=== PATIENT | male | born 1960 | race Caucasian/White ===

== ENCOUNTER → 2018-01-01 | Outpatient (CLI) | payer OTHER ==
--- NOTE | 2018-01-01 09:17 | KCIC ---
MRI Lumbar Spine without contrast History: Acute right lumbar radiculopathy, acute low back pain, right leg pain for 6 weeks Technique: Multiplanar, multi sequential noncontrast MR imaging was performed of the lumbar spine. Contrast: None Comparison: None Findings: Lumbar vertebral body stature is overall maintained, small Schmorl's nodes. There is negligible grade 1 anterior spondylolisthesis L4-5 and L5-S1, negligible posterior subluxation L1 relative L2. There are hemangiomas of L1 and L3. Conus terminates at inferior aspect of L1. There is very mild variable endplate edema at L1-L2 through L4-5. There is moderate to severe degenerative disc disease L1-L2 and L3-4, to a somewhat lesser degree at L4-5, minimally L2-3 and L5-S1. There is 1.8 cm T2 hyperintense lesion of the left kidney, statistically likely a cyst. T12-L1: There is very minimal disc osteophyte complex. Spinal canal and neural foramina are adequate. There is mild facet degenerative change. L1-L2: There is minimal disc osteophyte complex and bulge. There is posterior annular tear. There is mild facet degenerative change. There is minimal narrowing of the far left lateral recess. There is mild narrowing of the left neural foramen primarily from posteriorly, right neural foramen adequate. L2-L3: There is negligible disc osteophyte complex. There is minimal facet degenerative change. There is minimal narrowing of the far lateral recess. There is mild narrowing of the left neural foramen, right neural foramen adequate. There is small posterior annular tear. L3-L4: There is minimal disc osteophyte complex and superimposed shallow bulge/protrusion. There is posterior annular tear. There is mild facet degenerative change and buckling of the ligamentum flavum. There is rsfp-tx-fnhznpqt narrowing of the far right lateral recess, contact descending right L4 nerve root. There is very mild narrowing of the far left lateral recess. There is mild narrowing of the left neural foramen. There is moderate to severe narrowing of the right neural foramen, effacement of perineural fat surrounding the exiting right L3 nerve root. There is small extrusion extending above the intervertebral disc space in the far right lateral recess and anterior right neural foramen estimated about 0.7 cm CC by about 1 cm transverse by 0.3 cm AP with contact of the ventral surface exiting right L3 nerve root. L4-L5: There is moderate buckling of the ligamentum flavum and iaae-ko-mimqnvel facet degenerative change. There is mild partial uncovering of the posterior aspect of the disc due to spondylolisthesis with minimal superimposed bulge. There is overall moderate spinal stenosis, lateral recess stenosis bilaterally. There is ywvg-bu-aoytduuw neural foramina compromise bilaterally, contact of the undersurfaces exiting L4 nerve roots greater on the left. There is left posterolateral annular tear. There is mild amorphous edema of the bilateral L5 pedicles likely reactive in etiology. L5-S1: Spinal canal and neural foramina are adequate. Impression: 1. There is moderate to severe narrowing of the right L3-4 neural foramen in part by shallow extrusion extending above the intervertebral disc space in the far right lateral recess and inferior right neural foramen with contact exiting right L3 nerve root. There is xwpk-kb-gratbtaf neural foramina compromise bilaterally at L4-5, other minimal narrowing as stated. 2. There is overall moderate spinal stenosis at L4-5 including lateral recess stenosis, also vwdf-ob-weshvvts narrowing of the far right lateral recess at L3-4. 3. There is multilevel lumbar degenerative disc disease greatest L1-L2 and L3-4, variable minimal endplate edema likely reactive/degenerative in etiology. 4. There is mild abnormal alignment. 5. There is probable cyst of the left kidney. Electronically signed by: Madhav Griggs MD (01/01/2018 9:13 AM) [facility]
== END | disposition home or self-care (01) ==
LOC: KCIC MRI 12-29 07:47
PROVIDERS: ATTEND Neuromusculoskeletal Medicine & OMM
DX: M51.36 Other intervertebral disc degeneration, lumbar region (principal); M48.061 Spinal stenosis, lumbar region without neurogenic claudication; M43.16 Spondylolisthesis, lumbar region; M25.78 Osteophyte, vertebrae; M51.46 Schmorl's nodes, lumbar region; R60.0 Localized edema
CPT/HCPCS: 72148

== ENCOUNTER 2018-03-19 12:07 | Day surgery (SDC) | payer OTHER ==
[~2018-03-19] VITALS: Ht 175.3 cm; Wt 99.8 kg
[~2018-03-19 12:07] MED LIST: ATOR10TA60 PO; CIPROFLOXACIN 400MG PREMIX 200 ML IV PRN; HYDROmorphone 2 MG/ML VIAL IV PRN; IV RINGERS,LACTATED 1000ML 1,000 ML IV SCH; LIDOCAINE 1% PF 2 ML VIAL. ID PRN; MORPHINE SULFATE 2 MG/ML VIAL. IV PRN; ONDANSETRON PF 4 MG/2 ML VIAL. IV PRN; fentaNYL PF VIAL 100 MCG/2 ML VIAL IV PRN
[2018-03-19] MEDS ORDERED: LIDOCAINE 2% JELLY 6ML IN APPLICATOR. ONE (12:12)
[2018-03-19] MEDS ORDERED: ROCURONIUM 50 MG/5 ML VIAL. ONE ×2 (12:23→14:12)
[2018-03-19] MEDS ORDERED: MIDAZOLAM HCL/PF 2 MG/2 ML VIAL. ONE (12:23)
[2018-03-19] MEDS ORDERED: ONDANSETRON PF 4 MG/2 ML VIAL. ONE (12:23)
[2018-03-19] MEDS ORDERED: PROPOFOL 20 ML IV ONE (12:23)
[2018-03-19] MEDS ORDERED: LIDOCAINE 2% PF Vial for OR 5 ML VIAL. ONE (12:23)
[2018-03-19] MEDS ORDERED: fentaNYL PF VIAL 100 MCG/2 ML VIAL ONE ×2 (12:23→13:38)
[2018-03-19] MEDS ORDERED: SEVOFLURANE 61 TO 120 MINUTES. IH ONE (13:16)
[2018-03-19] MEDS ORDERED: GLYCOPYRROLATE 1 MG/5 ML VIAL. ONE (14:15)
[2018-03-19] MEDS ORDERED: NEOSTIGMINE METHYLSULFATE 5 MG/5 ML SYRINGE. ONE (14:15)
--- NOTE | 2018-03-19 14:48 | DISCH ---
DISCHARGE INSTRUCTIONS Condition on Discharge Condition on Discharge: Stable Activity After Discharge Activity Instructions for Disc: Avoid exertion Lifting Instructions after Dis: No heavy lifting Exercise Instruction after Dis: Walk 15 min, 3 x per day Diet after Discharge Diet after Discharge: Regular Wound Incision Care Other wound/incision instructi: Bean catheter care. Follow-Up Follow up with: DR. Granados in 1 week for catheter removal. Or remove cath at home on 03/23 IRMA GRANADOS MD Mar 19, 2018 14:48
[2018-03-19] MEDS ORDERED: HYDR-3164 PO (14:50)
--- NOTE | 2018-03-19 14:52 | PDOC4 ---
OPERATIVE NOTE Date: Date: Mar 19, 2018 Pre-Op Diagnosis: bladder cancer Post-Op Diagnosis: same Procedure Performed: TURBT > 5 cm tumor Resection of prostatic urethra tumor Surgeon: Irma Granados MD Anesthesia Type: general Blood Loss: 10 ml Specimans Obtained: bladder tumor dome / left lateral wall prostatic urethra tumors Findings: large tumor dome / left lateral wall of bladder tumor involoving prostatic urethra at bladder neck bilaterally Complications: none Operative Note: see dictation IRMA GRANADOS MD Mar 19, 2018 14:52
[2018-03-19] MEDS ORDERED: OPIUM/BELLADONNA 30/16.2MG SUPP.RECT. PR ONE (15:00)
--- NOTE | 2018-03-19 15:11 | OP ---
DATE OF SURGERY: 03/19/2018 SURGEON: Irma Granados MD. PROGRAM ARCHITECT: None. PREOPERATIVE DIAGNOSIS: Bladder cancer. POSTOPERATIVE DIAGNOSIS: Bladder cancer. PROCEDURES PERFORMED: 1. Transurethral resection of large bladder tumor. 2. Transurethral resection of prostatic urethral tumor. ANESTHESIA TYPE: General. INDICATIONS: This is a 57-year-old male who presented with gross hematuria. He was found to have a 5 cm tumor in his bladder. He also had tumor involving the lateral lobes of the prostate at the bladder neck. After discussion of risks, benefits and alternatives, he agreed to the above procedure. Informed consent was obtained. DESCRIPTION OF PROCEDURE: The patient was taken to the operating room. General anesthesia was induced. He was placed in dorsal lithotomy position, sterilely prepped and draped. A timeout was performed. A rigid cystoscope was advanced through the urethra and into the bladder. The bladder and prostatic urethra were both inspected with 30 and 70 degree lenses, demonstrating tumors bilaterally in the prostate near the bladder neck, and a tumor at least 5 cm in size on the left lateral wall and dome. Resectoscope was inserted. The large tumor was then resected. The resected area was larger than 5 cm. The tumor had a wide base and then grossly appeared to involve the muscle layer of the bladder. All grossly visible tumor was resected. The resected base was then cauterized. The tumor chips were sent as a specimen. The abnormal appearing tissue at the bladder neck involving the prostatic urethra was resected and sent as a separate specimen. The cause of the resected area was cauterized. Hemostasis was excellent. A catheter was placed and left on traction for 5 minutes. The catheter was then irrigated with return of completely clear fluid. The catheter bag was attached. The patient was then awakened and taken to the recovery room in stable condition. BLOOD LOSS: 10 mL. COMPLICATIONS: None. SPECIMEN: 1. Bladder tumor at left lateral wall/dome. 2. Prostatic urethra tumor. IRMA GRANADOS MD DR: JUAN/marycarmen JOB#: [id number] / [id number]
[2018-03-19] MEDS: PROCHLORPERAZINE 10 MG/2 ML VIAL. IV PRN ×2 (15:19→15:26)
[2018-03-19] MEDS: fentaNYL PF VIAL 100 MCG/2 ML VIAL IV PRN ×2 (15:20→15:27)
[2018-03-19] MEDS ORDERED: HYDROcodone/APAP 5/325MG 1 TAB TABLET PO ONE ×3 (16:00→16:45)
[2018-03-19] MEDS ORDERED: HYDROcodone/APAP 5/325MG 1 TAB TABLET ONE (16:02)
[2018-03-19] MEDS ORDERED: OXYB5TAB7 PO (16:42)
[2018-03-19 16:45] VITALS: BP 125/63
--- NOTE | 2018-03-25 15:08 | PATHOLOGY ---
[facility] Accession Number: [id number] . 01 Material submitted: . PART A: PROSTATIC URETER TUMOR PART B: BLADDER DOME TUMOR LEFT LATERAL WALL . 01 Clinical history: . Bladder tumor . 02 Diagnosis: A. 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 . B. "Bladder dome tumor left lateral wall", biopsy: - INVASIVE HIGH GRADE UROTHELIAL CARCINOMA WITH FOCAL NECROSIS. - Muscularis propria invasion present. (SKM/db; 03/23/2018) LBQ/03/23/2018 . 02 Comment: The findings in this case were relayed to Pattie at Dr. Coleman's office on 03/25/18. . Review/Concur: Dr. Wilks . 02 Electronically signed: . Casey Rios MD, Pathologist NPI- [id number] . 01 Gross description: . A. The specimen is received in formalin, labeled "Young, Paddy, prostatic ureter tumor" and consists of 4 segments of gauthier-brown tissue measuring between 0.9 x 0.4 cm and 1.0 x 0.5 x 0.3 cm. They are entirely submitted in A1. . B. The specimen is received in formalin, labeled "Young, Paddy, bladder dome tumor left lateral wall" and consists of multiple soft and friable fragments of gauthier-pink tissue weighing 38 g and measuring 9.5 x 8.5 x 1.6 cm in aggregate. A promotional representative portion is submitted in B1-B8. (SDY; 03/21/2018) SYU/SYU . 02 Pathologist provided ICD-10: C66.9, C67.2 . 02 CPT . 903470, 985824 Specimen Comment: A courtesy copy of this report has been sent to [facility] Comment: [phone]. Specimen Comment: Report sent to Performed at: [address] [facility], [place] [id number] MD Jairo Moura MD Phone: [phone] Performed at: [facility] [address] [place] [id number] MD Vince Dean MD Phone: [phone]
== END 2018-03-19 17:20 | disposition home or self-care (01) ==
LOC: SURG 12:07
PROVIDERS: ATTEND Urology
DX: C67.2 Malignant neoplasm of lateral wall of bladder (principal); C67.5 Malignant neoplasm of bladder neck; Z88.0 Allergy status to penicillin; Z79.899 Other long term (current) drug therapy
CPT/HCPCS: 52240; 52500; 88305; A7015; J0744; J0780; J2001; J2250; J2405; J2704; J2710; J3010; J3490

== ENCOUNTER 2018-04-24 06:48 | Outpatient (CLI) | payer OTHER ==
[~2018-04-24] VITALS: Ht 175.3 cm; Wt 99.8 kg
[2018-04-24] VITALS (7 sets, daily range): BP systolic 110–117; BP diastolic 62–76
[~2018-04-24 06:48] MED LIST changes: -CIPROFLOXACIN 400MG PREMIX 200 ML IV PRN; +HYDR-3164 PO; -HYDROmorphone 2 MG/ML VIAL IV PRN; -IV RINGERS,LACTATED 1000ML 1,000 ML IV SCH; -LIDOCAINE 1% PF 2 ML VIAL. ID PRN; -MORPHINE SULFATE 2 MG/ML VIAL. IV PRN; -ONDANSETRON PF 4 MG/2 ML VIAL. IV PRN; +OXYB5TAB7 PO; -fentaNYL PF VIAL 100 MCG/2 ML VIAL IV PRN
[2018-04-24 07:26] LABS: BASO # 0.1 x10^3/uL (0.0-0.2); BASO % 1 % (0-3); EOS # 0.3 x10^3/uL (0.0-0.7); EOS % 5 % (0-3); HEMATOCRIT 47.4 % (39.0-53.0); HEMOGLOBIN 16.3 g/dL (13.0-17.5); LYMPH # 1.9 x10^3/uL (1.0-4.8); LYMPH % 26 % (24-48); MEAN CORPUSCULAR HEMOGLOBIN 31 pg (25-35); MEAN CORPUSCULAR HGB CONC 34 g/dL (31-37); MEAN CORPUSCULAR VOLUME 90 fL (79-100); MONO # 0.5 x10^3/uL (0.0-1.1); MONO % 7 % (0-9); NEUT # 4.6 x10^3uL (1.8-7.7); NEUT % 62 % (31-73); PLATELET COUNT 216 x10^3/uL (140-400); RED BLOOD COUNT 5.29 x10^6/uL (4.30-5.70); WHITE BLOOD COUNT 7.5 x10^3/uL (4.0-11.0)
[2018-04-24 07:42] LABS: PROTHROMBIN TIME PATIENT 13.1 SEC (11.7-14.0)
[2018-04-24] MEDS ORDERED: fentaNYL PF VIAL 100 MCG/2 ML VIAL ONE (07:44)
[2018-04-24] MEDS ORDERED: MIDAZOLAM HCL/PF 2 MG/2 ML VIAL. ONE (07:44)
[2018-04-24] MEDS ORDERED: NALOXONE 0.4 MG/ML VIAL. ONE (07:45)
[2018-04-24] MEDS ORDERED: FLUMAZENIL 0.5 MG/5 ML VIAL. IV ONE (07:45)
[2018-04-24] MEDS ORDERED: LIDOCAINE 1%/EPI 1:100,000 20 ML VIAL. ONE (07:48)
[2018-04-24] MEDS ORDERED: VANCOMYCIN 1GM IVPB FOR OMNI 0 ML ONE (08:14)
[2018-04-24] MEDS ORDERED: CALC600T4 PO (08:24)
[2018-04-24] MEDS ORDERED: MULT-496 PO (08:24)
[2018-04-24] MEDS ORDERED: fentaNYL PF VIAL 100 MCG/2 ML VIAL IV ONE (08:45)
[2018-04-24] MEDS ORDERED: MIDAZOLAM HCL/PF 2 MG/2 ML VIAL. IV ONE (08:45)
[2018-04-24] MEDS ORDERED: LIDOCAINE 1%/EPI 1:100,000 20 ML VIAL. IJ ONE (08:45)
--- NOTE | 2018-04-24 08:54 | PDOC ---
MODERATE SEDATION ASSESSMENT RISKS/ALTERNATIVES Risks/Alternatives Risks and alternatives of this type of sedation and procedure discussed with: RISK/ALTERNATIVES: Patient H & P ON CHART H & P H & P on chart and reviewed for co-morbid conditions and appropriate labs. H&P ON CHART: Yes STATUS PREG STATUS ASSESSED: Yes MEDS/ALLERGIES REVIEWED Meds/Allergies Reviewed Medications and Allergies including time and route of recently administered narcotics and sedatives. MEDS/ALLERGIES REVIEWED: Yes ASA RATING ASA RATING: II AIRWAY ASSESSMENT Airway Assessment Airway patency, oral function limitations, presence of caps, crowns, dentures, partials, and ability to extend neck assessed. AIRWAY ASSESSMENT: Yes MALLAMPATI SCORE MALLAMPATI SCORE: II PRE-SEDATION ASSESSMENT PRE-SEDATION ASSESSMENT: Yes JEFFREY MAYS MD Apr 24, 2018 08:54
--- NOTE | 2018-04-24 10:36 | NUR ---
Discharge Note: RAHEL FLORENCE Discharge instructions and discharge home medications reviewed with Patient and a copy given. All questions have been answered and understanding verbalized. Patient tolerated PO intake well with no issues. Denies pain or any concerns or issues at this time. The following instructions and handouts were given: Moderate sedation, smoking cessation and asa-cath insertion. Discontinued lines and drains: left AC PIV discontinued with no issues, dressing clean dry and intact. Patient discharged to home with via wheelchair in private vehicle.
--- NOTE | 2018-04-24 14:38 | RAD ---
Procedure: Ultrasound and fluoroscopically guided placement of right internal jugular power port.. 04/24/2018 2:33 PM Clinical Indication: Bladder Cancer Sedation: Conscious sedation was administered for 30 minutes. The patient was monitored by a qualified independent observer throughout the time of sedation. Please refer to the medical record for exact doses of medications utilized to achieve moderate sedation. Fluoroscopy time: 0.5 minutes Dose area product: 2 Gycm2 Consent: The procedure was explained in its entirety to the patient or the patients designated open claims representative by a member of the treatment team, including a discussion of the risks, benefits and commonly accepted alternatives to the procedure, as well as the expected consequences of no therapy whatsoever. Discussion of the risks included, but was not limited to, those that are most frequent and those that are rare but possibly severe or life-threatening, as well as the possibility of unforeseen complications. Technique and Findings: All elements of maximal sterile barrier technique including the use of a cap, mask, sterile gown, sterile gloves, large sterile sheet, appropriate hand hygiene, and 2% chlorhexidine for cutaneous antisepsis (or acceptable alternative antiseptic per current guidelines) were followed for this procedure. Following informed consent, and a timeout procedure, the patient was prepped and draped in the usual sterile fashion. Ultrasound interrogation of the right neck revealed patency and compressibility of the right internal jugular vein. A 21-gauge micropuncture was then used to gain access to this vein under ultrasound guidance. A hard copy ultrasound image was recorded. The needle was exchanged over a wire for a sheath. A 1 inch incision was made several centimeters inferior to the venotomy site. A catheter was tunneled from this site dermatotomy site in the neck. Catheter was advanced through peel-away sheath such that its tip was in the proximal right atrium with the patient supine. The catheter was trimmed to length and connected to the port reservoir. The port was found to flush and aspirate normally. The wound was closed in layers using 4-0 Vicryl suture. Sterile dressings were applied. Impression: Successful ultrasound and fluoroscopically guided placement of a right internal jugular PowerPort
== END 2018-04-24 10:30 | disposition home or self-care (01) ==
LOC: INTRAD 06:48
PROVIDERS: ATTEND Internal Medicine Hematology & Oncology
DX: C67.9 Malignant neoplasm of bladder, unspecified (principal); Z88.0 Allergy status to penicillin; Z79.899 Other long term (current) drug therapy
CPT/HCPCS: 36415; 36561; 76937; 77001; 85025; 85610; C1751; C1892; J0690; J2250; J3010; J3490; 99152; 99153

== ENCOUNTER 2018-12-18 06:51 | Outpatient (CLI) | payer OTHER ==
[~2018-12-18] VITALS: Ht 175.3 cm; Wt 95.3 kg
[~2018-12-18 06:51] MED LIST changes: +CALC600T4 PO; +MULT-496 PO
[2018-12-18 07:39] VITALS: BP 112/72
[2018-12-18 07:58] LABS: BASO % 1 % (0-3); EOS # 0.3 x10^3/uL (0.0-0.7); EOS % 5 % (0-3); HEMATOCRIT 40.4 % (39.0-53.0); LYMPH # 1.2 x10^3/uL (1.0-4.8); LYMPH % 19 % (24-48); MEAN CORPUSCULAR HEMOGLOBIN 30 pg (25-35); MEAN CORPUSCULAR HGB CONC 35 g/dL (31-37); MEAN CORPUSCULAR VOLUME 85 fL (79-100); MONO # 0.4 x10^3/uL (0.0-1.1); MONO % 6 % (0-9); NEUT # 4.3 x10^3/uL (1.8-7.7); NEUT % 70 % (31-73); PLATELET COUNT 206 x10^3/uL (140-400); RED BLOOD COUNT 4.74 x10^6/uL (4.30-5.70); RED CELL DISTRIBUTION WIDTH 15.9 % (11.5-14.5); WHITE BLOOD COUNT 6.3 x10^3/uL (4.0-11.0)
[2018-12-18 08:07] LABS: PROTHROMBIN TIME PATIENT 12.7 SEC (11.7-14.0)
[2018-12-18] MEDS ORDERED: LIDOCAINE 1%/EPI 1:100,000 20 ML VIAL. ONE (08:15)
[2018-12-18] MEDS ORDERED: fentaNYL PF VIAL 100 MCG/2 ML VIAL ONE (08:29)
[2018-12-18] MEDS ORDERED: MIDAZOLAM HCL/PF 2 MG/2 ML VIAL. ONE (08:29)
[2018-12-18] MEDS ORDERED: MIDAZOLAM HCL/PF 2 MG/2 ML VIAL. IV ONE (08:45)
[2018-12-18] MEDS ORDERED: fentaNYL PF VIAL 100 MCG/2 ML VIAL IV ONE (08:45)
[2018-12-18] MEDS ORDERED: LIDOCAINE 1%/EPI 1:100,000 20 ML VIAL. INJ ONE (08:45)
[2018-12-18 08:49] VITALS: BP 99/63
[2018-12-18 09:05] VITALS: BP 115/71
[2018-12-18 09:20] VITALS: BP 101/72
[2018-12-18 09:35] VITALS: BP 105/77
[2018-12-18 09:50] VITALS: BP 117/80
--- NOTE | 2018-12-18 10:01 | NUR ---
Discharge Note: RAHEL FLORENCE Discharge instructions and discharge home medications reviewed with Patient and a copy given. All questions have been answered and understanding verbalized. The following instructions and handouts were given: incision care and adult moderate sedation Discontinued lines and drains: Peripheral IV intact. Patient discharged to Home or Self Care withSpousevia Wheelchair
--- NOTE | 2018-12-18 14:42 | RAD ---
12/18/2018 12:38 PM Removal of right internal jugular PowerPort Indication: No longer requires long-term central venous access. Chemotherapy is completed. Discussion: The risks and benefits of the procedure were discussed the patient. Informed consent was obtained. A timeout procedure was performed. The right chest was prepped and draped using maximum sterile barrier technique. All elements of maximal sterile barrier technique including the use of a cap, mask, sterile gown, sterile gloves, large sterile sheet, appropriate hand hygiene, and 2% chlorhexidine for cutaneous antisepsis (or acceptable alternative antiseptic per current guidelines) were followed for this procedure. 1% lidocaine was administered for local anesthesia. A small incision was made overlying the port reservoir. The catheter and reservoir were removed intact. The wound was closed in layers using 4-0 Vicryl suture. Sterile dressings were applied. No immediate complications were identified. Pre- and post removal fluoroscopic imaging was used to ensure complete removal. No immediate complications were identified radiographically. Impression: Removal of right internal jugular PowerPort
== END 2018-12-18 10:00 | disposition home or self-care (01) ==
LOC: INTRAD 06:51
PROVIDERS: ATTEND Internal Medicine Hematology & Oncology
DX: Z45.2 Encounter for adjustment and management of vascular access device (principal); C67.8 Malignant neoplasm of overlapping sites of bladder; Z88.0 Allergy status to penicillin; Z79.899 Other long term (current) drug therapy; Z79.01 Long term (current) use of anticoagulants
CPT/HCPCS: 36415; 36590; 77001; 85025; 85610; 85730; J2250; J3010; J3490; 99152